=== PATIENT | male | born 1980 | race Caucasian/White ===

== ENCOUNTER 2020-12-07 18:53 | Observation (INO) | payer OTHER ==
[~2020-12-07] VITALS: Ht 170.2 cm; Wt 81.6 kg
[2020-12-07 19:52] LABS: HEMOGLOBIN 15.2 gm/dl (14.0-17.5); RED BLOOD COUNT 4.87 M/UL (4.20-5.50); WHITE BLOOD COUNT 10.4 K/UL (4.5-11.0)
[2020-12-07 20:16] LABS: BUN/CREATININE RATIO 11 (0-10)
[2020-12-08] MEDS ORDERED: SUBOXONE 8 MG-1 EACH SL (08:59)
[2020-12-08] MEDS ORDERED: GABAPENTIN800 MG PO (08:59)
== END 2020-12-09 17:25 | disposition home or self-care (01) ==
LOC: ER1 18:53 → M/S 22:02 → CDU 22:02 → M/S 22:02
PROVIDERS: Emergency Medicine; ADMIT Internal Medicine
DX: R00.1 Bradycardia, unspecified (principal); R07.89 Other chest pain; F11.10 Opioid abuse, uncomplicated; F12.10 Cannabis abuse, uncomplicated; F15.10 Other stimulant abuse, uncomplicated; F19.10 Other psychoactive substance abuse, uncomplicated; K21.9 Gastro-esophageal reflux disease without esophagitis; Z79.899 Other long term (current) drug therapy; Z88.0 Allergy status to penicillin; Z20.822 Contact with and (suspected) exposure to COVID-19
CPT/HCPCS: ECHO; 70450; 71045; 80053; 80307; 81001; 82550; 82553; 83605; 83690; 84439; 84443; 84484; 85025; 93005; 93017; 93270; 93306; 96372; 96374; 99285; G0378; J1650; J2405; U0002

== ENCOUNTER 2021-03-16 17:31 | Emergency (ER) | payer OTHER ==
[~2021-03-16 17:31] MED LIST: GABAPENTIN800 MG PO; SUBOXONE 8 MG-1 EACH SL
== END 2021-03-16 17:45 | disposition left against medical advice (07) ==
LOC: ER1 17:31
DX: Z53.21 Procedure and treatment not carried out due to patient leaving prior to being seen by health care provider (principal)